=== PATIENT | female | born 1950 | race Caucasian/White ===

== ENCOUNTER → 2020-06-15 12:38 | Outpatient (CLI) | payer OTHER, SELFPAY ==
--- NOTE | 2020-06-15 12:47 | DI.CT.S_ITS ---
PROCEDURE: CT ABDOMEN PELVIS W CON INDICATIONS: Piin in abd TECHNIQUE: After the administration of oral and intravenous contrast, 5 mm thick sections acquired from the diaphragms to the symphysis. 5 mm thick coronal and sagittal reformats were performed. For radiation dose reduction, the following was used: automated exposure control, adjustment of mA and/or kV according to patient size. COMPARISON: None. FINDINGS: Image quality: Excellent. ABDOMEN: Lung bases: Mild right basilar infiltrate. Bibasilar atelectasis. Heart size is moderately increased.. Small hiatal hernia. Solid organs: Hepatic steatosis. Liver is normal in size and enhancement. Gallbladder contains calcified gallstones. Biliary system is non-dilated. Pancreas enhances normally. Spleen is normal in size and enhancement. There is a 1.7 cm left adrenal nodule. Right adrenal thickening without discrete mass. Kidneys are normal in size and enhancement, without hydronephrosis. Peritoneum and bowel: Stomach, small bowel, and colon loops are normal in caliber and wall thickness. No free fluid or air. Nodes and vessels: No retroperitoneal or mesenteric adenopathy. Aorta and inferior vena cava are normal in caliber. Miscellaneous: There are small ventral hernias in the anterior abdominal wall at midline. PELVIS: Genitourinary: Bladder wall thickness is normal. Miscellaneous: No inguinal hernias or adenopathy. Bones: No suspicious bony lesions. Scoliosis. No vertebral body compression fractures. Severe degenerative changes in lumbar spine. IMPRESSION: 1. Cholelithiasis. No CT findings to suggest acute cholecystitis. 2. There is a 1.7 cm left adrenal nodule. Recommend adrenal protocol CT or MRI for follow-up evaluation. 3. Small ventral hernias. 4. Hepatic steatosis. 5. Small hiatal hernia. 6. Mild right basilar infiltrate. 7. Moderate cardiomegaly. Dictated by: Awilda Ramirez M.D. on 06/15/2020 at 14:59 Approved by: Awilda Ramirez M.D. on 06/15/2020 at 16:34
[2020-06-15 13:14] LABS: BUN Creatinine Ratio 26.2 (6-22); Blood Urea Nitrogen 22 mg/dL (7-17); Estimated Glomerular Filt Rate > 60.0 mL/min (>60)
== END ==
PROVIDERS: Referring Provider Student in an Organized Health Care Education/Training Program; Visit Provider Student in an Organized Health Care Education/Training Program
DX: R10.9 Unspecified abdominal pain (principal); E27.9 Disorder of adrenal gland, unspecified; K44.9 Diaphragmatic hernia without obstruction or gangrene; K80.20 Calculus of gallbladder without cholecystitis without obstruction; K76.0 Fatty (change of) liver, not elsewhere classified; K43.9 Ventral hernia without obstruction or gangrene; I51.7 Cardiomegaly; R93.5 Abnormal findings on diagnostic imaging of other abdominal regions, including retroperitoneum; D64.9 Anemia, unspecified; K25.5 Chronic or unspecified gastric ulcer with perforation; Z87.11 Personal history of peptic ulcer disease
CPT/HCPCS: 36415; 74177; 82565; 84520; Q9967